=== PATIENT | male | born 1950 | race Caucasian/White ===

== ENCOUNTER 2017-05-14 16:00 | Inpatient (IN) ==
[2017-05-15 20:45] LABS: Appearance,Urine CLEAR; Bilirubin,Urine NEG (NEG); Color,Urine YELLOW; Glucose,Urine (UA) NEGATIVE (NEG); Leukocyte Esterase,Urine NEG /uL (NEG); Nitrate,Urine NEG (NEG); Protein,Urine NEG (NEG); Urine Blood NEG mg/dL (<0.03); Urobilinogen,Urine NEG (NEG)
[2017-05-15 21:11] LABS: Basophils # (Auto) 0 K/mcL (0.0-0.3); Basophils % (Auto) 0.3 % (0.0-2.0); Eosinophils # (Auto) 0.1 K/mcL (0.0-0.7); Eosinophils % (Auto) 0.8 % (0.0-7.0); Granulocytes % (Auto) 64.3 % (38.0-78.0); Lymphocytes # (Auto) 2.1 K/mcL (1.5-4.8); Lymphocytes % (Auto) 25.5 % (15.5-49.0); Mean Cell Volume 97.8 fL (80.0-100.0); Mean Corpuscular HGB Conc 34.6 g/dL (31.0-36.0); Mean Corpuscular Hemoglobin 33.8 pg (26.0-34.0); Monocytes # (Auto) 0.8 K/mcL (0.1-0.9); Monocytes % (Auto) 9.1 % (1.0-12.0); Platelet Count 230 K/mcL (140-440); RBC 4.05 M/mcL (4.50-5.90); Red Cell Distribution Width 12.8 % (11.5-14.5)
[2017-05-15 21:19] LABS: Blood Urea Nitrogen 23 mg/dl (8-23)
[2017-05-18] MEDS ORDERED: ACETAMINOPHEN 500 MG TABLET PO SCH ×2 (06:00→07:00)
[2017-05-18] MEDS ORDERED: ceFAZolin 1 GM VIAL IV SCH ×2 (06:00)
[2017-05-18] MEDS ORDERED: CELECOXIB 200 MG CAPSULE PO SCH ×2 (06:00)
[2017-05-18] MEDS ORDERED: GABAPENTIN 100 MG CAPSULE PO SCH ×2 (06:00)
[2017-05-18] MEDS ORDERED: oxyCODONE 10 MG TAB.ER.12H PO SCH ×2 (06:00→07:00)
[2017-05-18] MEDS ORDERED: GENTAMICIN SULFATE 800 MG/20 ML VIAL IR ONE (09:10)
[2017-05-18] MEDS ORDERED: PROPOFOL 200 MG/20 ML VIAL IV ONE (09:15)
[2017-05-18] MEDS ORDERED: ONDANSETRON 4 MG/2 ML VIAL IV ONE (09:15)
[2017-05-18] MEDS ORDERED: LIDOCAINE HCL/PF 100 MG/5 ML SYRINGE IV ONE (09:15)
[2017-05-18] MEDS ORDERED: GLYCOPYRROLATE 0.2 MG/ML VIAL IV ONE (09:15)
[2017-05-18] MEDS ORDERED: TRANEXAMIC ACID 1,000 MG/10 ML VIAL IV ONE ×2 (09:15→10:58)
[2017-05-18] MEDS ORDERED: MIDAZOLAM 5 MG/5 ML VIAL IV ONE (09:15)
[2017-05-18] MEDS ORDERED: DEXAMETHASONE 10 MG/ML VIAL IV ONE (09:15)
[2017-05-18] MEDS ORDERED: PHENYLEPHRINE 10 MG/ML VIAL IV ONE (09:15)
[2017-05-18] MEDS ORDERED: KETAMINE 100 MG/ML ML IV ONE (09:15)
[2017-05-18] MEDS ORDERED: ePHEDrine 50 MG/ML AMPUL IV PRN (10:36)
[2017-05-18] MEDS ORDERED: MEPERIDINE 25 MG/ML SYRINGE IV PRN (10:36)
[2017-05-18] MEDS ORDERED: PROMETHAZINE 25 MG/ML VIAL IV PRN (10:36)
[2017-05-18] MEDS ORDERED: IPRATROPIUM/ALBUTEROL 3 ML AMPUL.NEB NEB PRN (10:36)
[2017-05-18] MEDS ORDERED: BENZOCAINE/MENTHOL 1 LOZENGE PO PRN ×2 (10:36→10:58)
[2017-05-18] MEDS ORDERED: ONDANSETRON 4 MG/2 ML VIAL IV PRN ×2 (10:36→10:58)
[2017-05-18] MEDS ORDERED: METHOCARBAMOL 1,000 MG/10 ML VIAL IV PRN (10:36)
[2017-05-18] MEDS ORDERED: LACTATED RINGERS 1,000 ML IV SCH (10:45)
--- NOTE | 2017-05-18 10:57 | Brief Operative Note ---
Date of procedure: 05/18/17 Pre-op diagnosis: right hip djd severe and right elbow ulner nerve release Post-op diagnosis: same Procedure: right ashanti and right elbow ulner nerve release Grafts/Implants: Yes Anesthesia: GETA Complications: none Complications Description: 05/18/17 10:57 none Surgeon: Karson Hernandez [employer] Technician: Nirav Mackenzie Estimated blood loss (cc): 100 Tourniquet Time (Minutes): 0 Specimens Removed/Pathology: none sent Condition: stable Disposition: PACU
[2017-05-18] MEDS ORDERED: TEMAZEPAM 15 MG CAPSULE PO PRN (10:58)
[2017-05-18] MEDS ORDERED: BISACODYL 10 MG SUPP.RECT PR PRN (10:58)
[2017-05-18] MEDS ORDERED: ACETAMINOPHEN 325 MG TABLET PO PRN (10:58)
[2017-05-18] MEDS ORDERED: POLYETHYLENE GLYCOL 3350 17 GM PACKET PO PRN (10:58)
[2017-05-18] MEDS ORDERED: MAGNESIUM HYDROXIDE 30 ML ORAL.SUSP PO PRN (10:58)
[2017-05-18] MEDS ORDERED: FLEETS ADULT ENEMA PR PRN (10:58)
[2017-05-18] MEDS ORDERED: DESOXIMETASONE TP PRN (11:02)
--- NOTE | 2017-05-18 11:27 | Operative Note ---
DATE OF OPERATION: 05/18/2017 PREOPERATIVE DIAGNOSES: 1. Right hip degenerative arthritis, severe. 2. Right elbow ulnar nerve entrapment. POSTOPERATIVE DIAGNOSES: 1. Right hip degenerative arthritis, severe. 2. Right elbow ulnar nerve entrapment. PROCEDURES: 1. Right total hip arthroplasty. 2. Right ulnar nerve release. SURGEON: Karson Hernandez MD C D REACTOR OPERATOR: Nirav Mackenzie PA-C ANESTHESIA: General LMA anesthesia. COMPLICATIONS: None. IMPLANTS: A size 6 cementless stem, a 58 cementless cup with a dual mobility liner and a +8 neck length. BLOOD LOSS: 100 mL or less. DESCRIPTION OF PROCEDURE: The patient was brought to the operating room and put to sleep with general LMA anesthesia. Once asleep, the patient had the right hip sterilely prepped and draped in the usual sterile fashion. Once this was confirmed as the operative site the tranexamic acid and antibiotics had been given. Once all this had been done, we then sterilely prepped the right hip and made a superior posterior approach and performed a total hip arthroplasty. We went through the fascial layer and placed a Charnley retractor. Once this was done, I then identified the superior posterior capsule. We released the piriformis obturator internus which was tagged and we released the capsule and then dislocated the hip. We made our neck cut at 34 mm in length and then subluxed the hip anteriorly, removed the labrum and reamed up to the size 57 and implanted a 58 cup. Once this was done, we then placed the dual mobility liner. The inclination was 40 degrees, anteversion 20 degrees, no complications with this portion. We irrigated thoroughly. We then prepared the canal. We broached up to the size 6, trialed a size 6 with a neutral length and took an x-ray. This was slightly short as well as not as stable as we would like. We then implanted the final implant, a size 6. This did countersink slightly from the original. We did go up to a +8 neck length. Once this was done, we then reduced the hip. This was very stable up to 90 degrees of internal rotation, full range of motion and equal leg lengths. Intraoperative x-rays were excellent. We then proceeded with washing the hip and closed the superior posterior capsule. Once this was done, I then closed the fascial layer with #1 6, closed the skin with 2-0 Vicryl and adhesive closure. The patient tolerated this well without complication. The second case was then performed. I sterilely prepped the right elbow, placed a new drape over the arm. We then released the ulnar nerve without a tourniquet, identifying the nerve initially through the skin and then followed this proximally and distally. Once this was adequately decompressed, which was very tight in the ulnar canal, we then irrigated and placed two stitches to close the skin. Once done, I then irrigated thoroughly and the skin was closed with 5-0 nylon. The patient tolerated this well with a posterior splint. There was no complication. [facility]:letty Job ID: [id number] Doc ID: [id number] Karson Hernandez MD
[2017-05-18] MEDS: fentaNYL 100 MCG/2 ML VIAL IV PRN ×2 (11:31→11:40)
--- NOTE | 2017-05-18 11:41 | XRay Report ---
CLINICAL INFORMATION: :Post-op Total Hip COMPARISON: None. FINDINGS: Right total hip prostheses noted. There appears to be mild excess of anteversion and lateral canting of the acetabular component. Femoral component is anatomically aligned. No osseous abnormality. Both SI and left hip joints are normal. The soft tissues are unremarkable. IMPRESSION: Right total hip prostheses - as described Interpreted and Authenticated by: Semaj Tejada 05/18/17
[2017-05-18] MEDS: KETOROLAC 15 MG/ML VIAL IV PRN ×2 (11:45→17:46)
[2017-05-18] MEDS: 0.9 % SODIUM CHLORIDE 10 ML SYRINGE IV SCH ×2 (13:05→22:10)
[2017-05-18] MEDS: 0.45 % SODIUM CHLORIDE 1,000 ML IV SCH ×2 (13:15→22:18)
[2017-05-18] MEDS: oxyCODONE HCL 5 MG TABLET PO PRN (14:42)
[2017-05-18] MEDS: GABAPENTIN 100 MG CAPSULE PO SCH ×2 (14:44→20:21)
[2017-05-18] MEDS: ceFAZolin 1 GM VIAL IV SCH (16:45)
[2017-05-18] MEDS: HYDROmorphone 2 MG/ML SYRINGE IV PRN ×2 (17:52→22:05)
[2017-05-18] MEDS: oxyCODONE 10 MG TAB.ER.12H PO SCH (19:47)
[2017-05-18] MEDS: ASPIRIN 325 MG ENTERIC COATED TABLET PO SCH (20:20)
[2017-05-18] MEDS: MELOXICAM 7.5 MG TABLET PO SCH (20:21)
[2017-05-18] MEDS: DOCUSATE SODIUM 100 MG CAPSULE PO SCH (20:21)
[2017-05-18] MEDS ORDERED: SENNOSIDES 1 TABLET PO SCH (21:00)
[2017-05-19] MEDS: ceFAZolin 1 GM VIAL IV SCH (01:30)
[2017-05-19] MEDS: MELOXICAM 7.5 MG TABLET PO SCH ×2 (02:19→08:07)
[2017-05-19] MEDS: KETOROLAC 15 MG/ML VIAL IV PRN (03:15)
[2017-05-19] MEDS: oxyCODONE HCL 5 MG TABLET PO PRN ×3 (03:16→13:00)
[2017-05-19] MEDS: 0.9 % SODIUM CHLORIDE 10 ML SYRINGE IV SCH ×2 (05:59→14:39)
[2017-05-19] MEDS: 0.45 % SODIUM CHLORIDE 1,000 ML IV SCH (06:34)
--- NOTE | 2017-05-19 07:31 | Orthopedic Progress Note ---
Subjective Patient information: Note initiated : 05/19/17 at 7:30 am Service Date, if different from initiated Date: [] Patient: Yong Correia 66 y/o M admitted on 05/18/17 for Right Total Hip Arthroplasty, Right Elbow Ulnar . Chief Complaint: [Pt is stable this morning on post operative day 1 without any significant concerns or complaints. Patients vital signs have remained stable. Patients dressing is dry and exhibits a grossly intact neurovascular and neuromotor exam. Patients 10 point ROS is otherwise negative. ] Objective Vital signs: Vital Signs Temp Pulse Resp BP BP Pulse Ox 05/19/17 03:20 97.5 F 92 H 18 111/68 96 05/19/17 03:00 96 05/19/17 00:00 98.4 F 110 H 18 107/56 93 05/18/17 23:00 93 05/18/17 21:00 93 05/18/17 20:12 98.1 F 118 H 16 118/73 93 05/18/17 16:40 98.8 F 115 H 16 107/75 91 05/18/17 14:52 105 H 110/72 94 05/18/17 13:55 99 H 114/73 95 05/18/17 13:25 91 H 108/66 05/18/17 13:17 94 05/18/17 12:55 73 113/72 98 05/18/17 12:40 85 103/68 98 05/18/17 12:25 86 92/61 95 05/18/17 12:10 97.9 F 81 24 H 101/65 97 05/18/17 11:50 82 14 120/62 98 05/18/17 11:44 14 104/56 100 05/18/17 11:39 75 17 128/65 97 05/18/17 11:25 71 13 108/47 98 05/18/17 11:20 70 14 111/72 100 05/18/17 11:15 79 13 112/69 100 05/18/17 11:10 81 15 130/70 100 05/18/17 11:00 97.4 F 71 15 106/54 98 Intake and Output 05/18/17 05/19/17 05/19/17 21:59 05:59 13:59 Intake Total 600 / 600 1505 / 1505 Output Total 425 / 425 1775 / 1775 400 / 400 Balance 175 / 175 -270 / -270 -400 / -400 Intake: IV 905 / 905 Sodium Chloride 0.45% 1,000 ml 905 / 905 @ 100 mls/hr IV .Q10H DHAVAL Rx#: [id number] Oral 600 / 600 600 / 600 Output: Void Amount 425 / 425 1775 / 1775 400 / 400 Other: Meal Lunch Percent of Meal Consumed 100% Weight 266 lb Intake & Output: Intake & Output 05/18/17 05/19/17 05/19/17 21:59 05:59 13:59 Intake Total 600 / 600 1505 / 1505 Output Total 425 / 425 1775 / 1775 400 / 400 Balance 175 / 175 -270 / -270 -400 / -400 Weight 266 lb Intake: IV 905 / 905 Sodium Chloride 0.45% 1,000 ml 905 / 905 @ 100 mls/hr IV .Q10H DHAVAL Rx#: [id number] Oral 600 / 600 600 / 600 Output: Void Amount 425 / 425 1775 / 1775 400 / 400 Other: Meal Lunch Percent of Meal Consumed 100% Incision: Yes healing Incision clean and dry: Yes Dressing: Yes clean, Yes dry Weight bearing status: partial Neurological exam IM: Yes motor sensory intact, Yes neurovascular intact Extremities exam IM: Yes Foot pink and warm, Yes neurovascular intact - Labs CBC & BMP: 05/15/17 17:11 05/15/17 17:11 Labs: Orthopedic Labs 05/15/17 17:11 PT 13.1 INR 1.0 APTT 30 05/15/17 17:11 Hgb 13.7 Hct 39.6 L Assessment and Plan (1) Hx of total hip arthroplasty The patient has been educated regarding dressing care, Physical Therapy recommendations, home exercises, restrictions, and follow up appointments. The patient has had all necessary DME prescribed. The patient has remained stable during their hospital course. The patient was discharge with a stable exam. Leave Dermabond patch intact until followup Status: Acute (2) Hx of total hip arthroplasty Status: Acute
--- NOTE | 2017-05-19 07:34 | Discharge Summary ---
Ortho Discharge - [facility] - Patient Instructions Diet: Regular Diet Activity: activity as tolerated, weight bearing as tolerated Total Hip Protocol: Follow activity instructions as provided by Physical Therapy. Dressing Care: May shower in 2 days Patient Education: Aspirin/Codeine (By mouth), Oxycodone, Rapid Release (By mouth), Total Hip Replacement (DC) Additional Instructions: Discharge Instructions: Do the exercises at home that physical therapy gave you. You are scheduled to start physical therapy at [facility] ([phone]) on May.23 at 1:45 pm, please arrive 15 minutes early for paperwork. Take your prescription, photo ID, insurance cards, and current medication list with you to your first physical therapy appointment. Take your prescription to pick and shovel man any medication or equipment (such as walker, crutches, toilet riser or C.P.M.) Wear comfortable clothing for your physical therapy (wear/bring shorts. Weight bearing as tolerated. You have Dermabond dressing (a dressing with a mesh-like appearance) on your hip , leave open to air. Do not remove this dressing from your hip You may start showering on post op day #2. No soaking in tub/pool. Keep your right arm dressing clean, dry and in place until seen in the physician 's office. No weight bearing with right hand. To avoid constipation while taking any narcotic pain medication, take an over the counter stool softener/laxative. Use packs as directed, on for 20 minutes at a time throughout the day. This and elevation will help with pain and swelling. Call your physician for fevers above 100.5 or pain not controlled by medication. Your prescriptions are with your discharge information. Some medications were electronically transmitted to your pharmacy of choice. - Problem Maintenance (1) Hx of total hip arthroplasty Status: Acute (2) Hx of total hip arthroplasty Status: Acute - Follow Up Plan Follow Up Appointments: Karson Hernandez MD [Physician] - 05/31/17 9:30 am Disposition: Home, Self-Care Prognosis: Good Rehab Potential: Good I certify that the patient requires SNF services: No Overall status at discharge: patient is progressing back to baseline - Orders For Discharge Prescriptions: Aspirin [Ecotrin] 325 mg PO BID #28 tab.ec oxyCODONE HCL [Roxicodone] 5 - 10 mg PO Q4HP PRN #60 tab PRN Reason: Pain Additional Discharge Orders: Physical Therapy at Discharge - [facility] Location: Determined By Patient Toilet Riser Discharge Order Location: Determined By Patient Toilet Riser Discharge Order Location: Determined By Patient Walker Location: Determined By Patient
[2017-05-19] MEDS: oxyCODONE 10 MG TAB.ER.12H PO SCH (08:06)
[2017-05-19] MEDS: ASPIRIN 325 MG ENTERIC COATED TABLET PO SCH (08:07)
[2017-05-19] MEDS: DOCUSATE SODIUM 100 MG CAPSULE PO SCH (08:07)
[2017-05-19] MEDS: GABAPENTIN 100 MG CAPSULE PO SCH (08:08)
[2017-05-19] MEDS ORDERED: MULTIVIT,THER IRON,CA,FA & MIN 1 TABLET PO SCH (09:00)
[2017-05-19] MEDS ORDERED: LOSARTAN/HCTZ 100/25 TABLET PO SCH (09:00)
[2017-05-19] MEDS ORDERED: HYDROCHLOROTHIAZIDE 25 MG TABLET PO SCH (09:00)
[2017-05-19] MEDS ORDERED: LOSARTAN 50 MG TABLET PO SCH (09:00)
[2017-05-23] MEDS ORDERED: TESTOSTERONE CYPIONATE 200 MG SC SCH (09:00)
== END 2017-05-19 15:45 | disposition home or self-care (01) | DRG 470 ==
LOC: MEDSUR 05-18 06:29
PROVIDERS: ADMIT Orthopaedic Surgery; ATTEND Orthopaedic Surgery

== ENCOUNTER 2024-09-10 11:21 | Inpatient (IN) ==
[2024-09-10] MEDS ORDERED: LIDOCAINE 1% 10 ML VIAL SQ ONE (11:22)
[2024-09-10] MEDS: morphine 10 MG/ML VIAL IV ONE (11:54)
[2024-09-10] MEDS: fentaNYL 100 MCG/2 ML VIAL IV ONE ×3 (12:54→19:06)
[2024-09-10 14:38] LABS: Erythrocyte Sedimentation Rate 40 mm/hr (0-20)
[2024-09-10 14:42] LABS: Basophils # (Auto) 0 K/mcL (0.00-0.30); Basophils % (Auto) 0 % (0.0-2.0); Eosinophils # (Auto) 0 K/mcL (0.00-0.70); Eosinophils % (Auto) 0 % (0.0-7.0); Hematocrit 43.8 % (40.1-51.0); Hemoglobin 14.9 g/dL (13.7-17.5); Lymphocytes # (Auto) 0.48 K/mcL (1.50-4.80); Lymphocytes % (Auto) 8.1 % (15.5-49.0); Mean Cell Volume 96.5 fL (80.0-100.0); Mean Platelet Volume 10.8 fL (8.8-12.5); Monocytes # (Auto) 1.13 K/mcL (0.10-0.90); Monocytes % (Auto) 19.1 % (1.0-12.0); Neutrophils % (Auto) 72.6 % (38.0-78.0); Platelet Count 98 K/mcL (140-440); RBC 4.54 M/mcL (4.63-6.08); Red Cell Distribution Width 12.2 % (11.5-14.5); WBC 5.9 K/mcL (4.5-11.0)
[2024-09-10 14:43] LABS: Prothrombin Time 14.3 sec (11.9-14.5)
[2024-09-10 14:46] LABS: ALT/SGPT 27 U/L (<40); AST/SGOT 46 U/L (<40); Albumin 3.9 gm/dL (3.2-5.2); Albumin/Globulin Ratio 1.3 (1.0-2.3); Alkaline Phosphatase 54 U/L (39-117); Bilirubin,Total 0.7 mg/dL (0.1-1.0); Blood Urea Nitrogen 35 mg/dL (8-23); Calcium 9.3 mg/dL (8.6-10.4); Carbon Dioxide 24 mmol/L (22-30); Chloride 95 mmol/L (96-108); Globulin 3.1 gm/dL (2.2-3.7); Glomerular Filtration Rate 42; Glucose 95 mg/dL (70-105); Potassium 3.9 mmol/L (3.3-5.1); Sodium 133 mmol/L (133-145)
[2024-09-10] MEDS: 0.9 % SODIUM CHLORIDE 1,000 ML IV ONE (16:05)
[2024-09-10] MEDS: PIPERACILLIN SODIUM/TAZOBACTAM 3.375 GM in DEXTROSE 5% IN WATER 50 ML IV ONE (16:10)
[2024-09-10] MEDS: VANCOMYCIN 1,500 MG in 0.9 % SODIUM CHLORIDE 500 ML IV ONE (16:41)
[2024-09-10 17:49] LABS: Crystals,Body Fluid Ca Pyrophosphate (None Seen)
[2024-09-10 18:12] LABS: Glucose,Synovial Fluid 6 mg/dL
[2024-09-10 18:21] LABS: Appearance,Synovial Fluid Cloudy; Color,Synovial Fluid Red; Lymphocytes,Synovial Fluid 2 %; Neutrophils,Synovial Fluid 98 % (0-25); Nucleated Cells,Synovial Fld 147315 /cumm
[2024-09-10 18:44] LABS: LDH,Synovial Fluid 5015 U/L
[2024-09-10] MEDS ORDERED: 0.9 % SODIUM CHLORIDE 10 ML SYRINGE IV PRN (18:54)
[2024-09-10] MEDS: ACETAMINOPHEN 1,000 MG/100 ML BAG IV ONE (19:12)
[2024-09-10] MEDS: ACETAMINOPHEN 500 MG TABLET PO ONE (19:15)
[2024-09-10] MEDS: VANCOMYCIN 2,000 MG in 0.9 % SODIUM CHLORIDE 500 ML IV SCH (19:48)
[2024-09-10] MEDS: HYDROmorphone 1 MG/ML SYRINGE IV PRN (20:54)
[2024-09-10] MEDS: 0.9 % SODIUM CHLORIDE 10 ML SYRINGE IV SCH (20:58)
[2024-09-10] MEDS: ceFAZolin 3 GM in DEXTROSE 5% IN WATER 50 ML IV SCH (21:22)
[2024-09-10] MEDS: VANCOMYCIN 500 MG in 0.9 % SODIUM CHLORIDE 100 ML IV ONE (22:42)
[2024-09-10] MEDS: VANCOMYCIN PER PHARMACY IV ONE (22:46)
[2024-09-11] MEDS ORDERED: VANCOMYCIN PER PHARMACY IV SCH (06:45)
[2024-09-11] MEDS: VANCOMYCIN 1,500 MG in 0.9 % SODIUM CHLORIDE 500 ML IV SCH (10:18)
[2024-09-11] MEDS ORDERED: NALOXONE HCL 0.4 MG/ML VIAL IV PRN ×2 (14:07→15:16)
[2024-09-11] MEDS: HYDROmorphone 1 MG/ML SYRINGE IV ONE (14:19)
[2024-09-11] MEDS: LORazepam 2 MG/ML VIAL ONE (14:20)
[2024-09-11] MEDS: LACTATED RINGERS 1,000 ML IV ONE ×2 (14:21→15:13)
[2024-09-11] MEDS: LEVOFLOXACIN 750 MG/150 ML BAG IV ONE ×2 (14:24→15:46)
[2024-09-11 14:43] LABS: Basophils # (Auto) 0.01 K/mcL (0.00-0.30); Basophils % (Auto) 0.2 % (0.0-2.0); Eosinophils # (Auto) 0 K/mcL (0.00-0.70); Eosinophils % (Auto) 0 % (0.0-7.0); Hematocrit 44.7 % (40.1-51.0); Hemoglobin 15.1 g/dL (13.7-17.5); Lymphocytes # (Auto) 0.83 K/mcL (1.50-4.80); Lymphocytes % (Auto) 13.3 % (15.5-49.0); Mean Cell Volume 97.4 fL (80.0-100.0); Mean Corpuscular HGB Conc 33.8 g/dL (31.0-36.0); Mean Platelet Volume 10.2 fL (8.8-12.5); Monocytes # (Auto) 0.79 K/mcL (0.10-0.90); Monocytes % (Auto) 12.7 % (1.0-12.0); Neutrophils % (Auto) 73.6 % (38.0-78.0); Platelet Count 99 K/mcL (140-440); RBC 4.59 M/mcL (4.63-6.08); Red Cell Distribution Width 12.4 % (11.5-14.5); WBC 6.2 K/mcL (4.5-11.0)
[2024-09-11 14:55] LABS: ALT/SGPT 29 U/L (<40); AST/SGOT 43 U/L (<40); Albumin 3.9 gm/dL (3.2-5.2); Albumin/Globulin Ratio 1.1 (1.0-2.3); Alkaline Phosphatase 60 U/L (39-117); Bilirubin,Direct 0.3 mg/dL (<0.3); Bilirubin,Total 0.6 mg/dL (0.1-1.0); Blood Urea Nitrogen 29 mg/dL (8-23); Calcium 9.2 mg/dL (8.6-10.4); Carbon Dioxide 24 mmol/L (22-30); Chloride 95 mmol/L (96-108); Globulin 3.6 gm/dL (2.2-3.7); Glomerular Filtration Rate 42; Glucose 91 mg/dL (70-105); Lactate Dehydrogenase 241 U/L (135-225); Phosphorous 3.6 mg/dL (2.5-4.5); Potassium 3.7 mmol/L (3.3-5.1); Sodium 135 mmol/L (133-145); Triglycerides 124 mg/dL (<150); Uric Acid 8.5 mg/dL (2.5-8.0)
[2024-09-11 15:00] LABS: Prothrombin Time 13.8 sec (11.9-14.5)
[2024-09-11] MEDS ORDERED: KETAMINE 50 MG/ML Syringe IV ONE (15:05)
[2024-09-11] MEDS ORDERED: PROPOFOL 200 MG/20 ML VIAL IV ONE (15:05)
[2024-09-11] MEDS ORDERED: fentaNYL 100 MCG/2 ML VIAL ONE (15:05)
[2024-09-11] MEDS ORDERED: DEXAMETHASONE 10 MG/ML VIAL ONE (15:06)
[2024-09-11] MEDS ORDERED: LIDOCAINE 2% PF 5 ML VIAL ONE (15:10)
[2024-09-11] MEDS ORDERED: ONDANSETRON 4 MG/2 ML VIAL IV PRN ×2 (15:16→18:59)
[2024-09-11] MEDS ORDERED: LACTATED RINGERS 250 ML IV PRN (15:16)
[2024-09-11] MEDS ORDERED: HYDROmorphone 0.5 MG/0.5 ML SYRINGE IV PRN ×2 (15:16→18:14)
[2024-09-11] MEDS ORDERED: fentaNYL 100 MCG/2 ML VIAL IV PRN ×2 (15:16→18:14)
[2024-09-11] MEDS ORDERED: IPRATROPIUM/ALBUTEROL 3 ML AMPUL.NEB NEB PRN ×2 (15:16→18:14)
[2024-09-11] MEDS ORDERED: BENZOCAINE/MENTHOL 1 LOZENGE PO PRN ×2 (15:16→18:59)
[2024-09-11] MEDS ORDERED: GLYCOPYRROLATE 0.2 MG/ML VIAL IV ONE (16:09)
[2024-09-11] MEDS ORDERED: ONDANSETRON 4 MG/2 ML VIAL ONE (16:09)
[2024-09-11] MEDS: cefTRIAXone 2 GM in DEXTROSE 5% IN WATER 50 ML IV ONE (16:21)
[2024-09-11] MEDS ORDERED: FAMOTIDINE/PF 20 MG/2 ML VIAL IV ONE (17:53)
[2024-09-11] MEDS ORDERED: METOPROLOL TARTRATE 5 MG/5 ML VIAL IV ONE (17:53)
[2024-09-11] MEDS ORDERED: METOCLOPRAMIDE 10 MG/2 ML VIAL ONE (17:53)
[2024-09-11] MEDS ORDERED: HYDROmorphone 0.5 MG/0.5 ML SYRINGE ONE ×2 (18:00→18:04)
[2024-09-11] MEDS ORDERED: DROPERIDOL 5 MG/2 ML VIAL IV PRN (18:14)
[2024-09-11] MEDS ORDERED: KETOROLAC 15 MG/ML VIAL IV PRN (18:59)
[2024-09-11] MEDS ORDERED: TEMAZEPAM 15 MG CAPSULE PO PRN (18:59)
[2024-09-11] MEDS ORDERED: HYDROcodone/APAP 10/325MG TABLET PO PRN (18:59)
[2024-09-11] MEDS ORDERED: HYDROmorphone 1 MG/ML SYRINGE IV PRN (18:59)
[2024-09-11] MEDS ORDERED: DESOXIMETASONE TP PRN (19:02)
[2024-09-11 19:09] LABS: Uric Acid,Synovial Fluid 6.3 mg/dL (<6.0)
[2024-09-11] MEDS: METHOCARBAMOL 1,000 MG/10 ML VIAL IV PRN (19:16)
[2024-09-11] MEDS: TRANEXAMIC ACID 1,000 MG/10 ML VIAL IV ONE (19:19)
[2024-09-11] MEDS: LACTATED RINGERS 1,000 ML IV SCH ×4 (20:09→21:22)
[2024-09-11] MEDS ORDERED: DOXYCYCLINE HYCLATE 100 MG PO SCH (21:00)
[2024-09-11] MEDS: 0.9 % SODIUM CHLORIDE 1,000 ML IV SCH (21:23)
[2024-09-11] MEDS: MELOXICAM 7.5 MG TABLET PO SCH (21:33)
[2024-09-11] MEDS: DOCUSATE SODIUM 100 MG CAPSULE PO SCH (21:33)
[2024-09-11] MEDS: ASPIRIN 81 MG TAB.CHEW CHEWED SCH (21:33)
[2024-09-11] MEDS: 0.9 % SODIUM CHLORIDE 10 ML SYRINGE IV SCH (21:34)
[2024-09-11] MEDS: DIAZEPAM 10 MG TABLET PO PRN (22:17)
[2024-09-11] MEDS ORDERED: ceFAZolin 1 GM VIAL IV SCH (23:00)
[2024-09-12] MEDS: TRANEXAMIC ACID 1,000 MG/10 ML VIAL ONE (07:08)
[2024-09-12 07:21] LABS: Basophils # (Auto) 0 K/mcL (0.00-0.30); Basophils % (Auto) 0 % (0.0-2.0); Blood Urea Nitrogen 36 mg/dL (8-23); Carbon Dioxide 19 mmol/L (22-30); Chloride 99 mmol/L (96-108); Eosinophils # (Auto) 0 K/mcL (0.00-0.70); Eosinophils % (Auto) 0 % (0.0-7.0); Glomerular Filtration Rate 42; Glucose 154 mg/dL (70-105); Hematocrit 43.5 % (40.1-51.0); Hemoglobin 14.4 g/dL (13.7-17.5); Lymphocytes # (Auto) 0.47 K/mcL (1.50-4.80); Mean Cell Volume 98.9 fL (80.0-100.0); Mean Corpuscular HGB Conc 33.1 g/dL (31.0-36.0); Mean Platelet Volume 10.8 fL (8.8-12.5); Monocytes % (Auto) 7.5 % (1.0-12.0); Neutrophils % (Auto) 85.4 % (38.0-78.0); Platelet Count 98 K/mcL (140-440); Potassium 4.6 mmol/L (3.3-5.1); Red Cell Distribution Width 12.4 % (11.5-14.5); Sodium 135 mmol/L (133-145); WBC 6.7 K/mcL (4.5-11.0)
[2024-09-12] MEDS: LACTATED RINGERS 1,000 ML IV SCH (08:58)
[2024-09-12] MEDS ORDERED: LOSARTAN/HCTZ 50/12.5 TABLET PO SCH (09:00)
[2024-09-12] MEDS: cefTRIAXone 2 GM in DEXTROSE 5% IN WATER 50 ML IV SCH (09:00)
[2024-09-12] MEDS ORDERED: cefTRIAXone 1 GM VIAL IV SCH (09:00)
[2024-09-12] MEDS ORDERED: LOSARTAN 50 MG TABLET PO SCH (09:00)
[2024-09-12] MEDS ORDERED: HYDROCHLOROTHIAZIDE 12.5 MG CAPSULE PO SCH (09:00)
[2024-09-12] MEDS: LACTOBACILLUS 1 CAPSULE PO SCH (09:17)
[2024-09-12] MEDS: LEVOFLOXACIN 750 MG/150 ML BAG IV SCH (09:47)
[2024-09-12] MEDS: ACETAMINOPHEN 325 MG TABLET PO PRN (19:30)
[2024-09-13 06:25] LABS: Basophils # (Auto) 0 K/mcL (0.00-0.30); Basophils % (Auto) 0 % (0.0-2.0); Eosinophils # (Auto) 0 K/mcL (0.00-0.70); Eosinophils % (Auto) 0 % (0.0-7.0); Hematocrit 35.8 % (40.1-51.0); Hemoglobin 12.2 g/dL (13.7-17.5); Lymphocytes % (Auto) 9.1 % (15.5-49.0); Mean Cell Volume 96.8 fL (80.0-100.0); Mean Corpuscular HGB Conc 34.1 g/dL (31.0-36.0); Mean Platelet Volume 10.2 fL (8.8-12.5); Monocytes % (Auto) 10.4 % (1.0-12.0); Neutrophils % (Auto) 80.2 % (38.0-78.0); Platelet Count 134 K/mcL (140-440); Red Cell Distribution Width 12.6 % (11.5-14.5); WBC 7.7 K/mcL (4.5-11.0)
[2024-09-13 07:04] LABS: ALT/SGPT 27 U/L (<40); AST/SGOT 35 U/L (<40); Albumin 3.1 gm/dL (3.2-5.2); Albumin/Globulin Ratio 1.1 (1.0-2.3); Alkaline Phosphatase 42 U/L (39-117); Bilirubin,Direct 0.2 mg/dL (<0.3); Bilirubin,Total 0.4 mg/dL (0.1-1.0); Blood Urea Nitrogen 40 mg/dL (8-23); Calcium 8.7 mg/dL (8.6-10.4); Carbon Dioxide 24 mmol/L (22-30); Chloride 102 mmol/L (96-108); Globulin 2.8 gm/dL (2.2-3.7); Glomerular Filtration Rate 42; Glucose 126 mg/dL (70-105); Lactate Dehydrogenase 179 U/L (135-225); Phosphorous 2.3 mg/dL (2.5-4.5); Potassium 3.8 mmol/L (3.3-5.1); Sodium 140 mmol/L (133-145); Triglycerides 108 mg/dL (<150); Uric Acid 8.1 mg/dL (2.5-8.0)
[2024-09-13] MEDS: HYDROcodone/APAP 5/325MG TABLET PO PRN (12:15)
[2024-09-14 06:38] LABS: ALT/SGPT 33 U/L (<40); AST/SGOT 39 U/L (<40); Albumin 3.4 gm/dL (3.2-5.2); Albumin/Globulin Ratio 1.2 (1.0-2.3); Alkaline Phosphatase 48 U/L (39-117); Bilirubin,Direct 0.3 mg/dL (<0.3); Bilirubin,Total 0.5 mg/dL (0.1-1.0); Blood Urea Nitrogen 36 mg/dL (8-23); Carbon Dioxide 24 mmol/L (22-30); Chloride 102 mmol/L (96-108); Globulin 2.9 gm/dL (2.2-3.7); Glomerular Filtration Rate 42; Glucose 101 mg/dL (70-105); Lactate Dehydrogenase 205 U/L (135-225); Phosphorous 2.6 mg/dL (2.5-4.5); Potassium 3.6 mmol/L (3.3-5.1); Sodium 140 mmol/L (133-145); Triglycerides 123 mg/dL (<150); Uric Acid 7.6 mg/dL (2.5-8.0)
[2024-09-14] MEDS: diphenhydrAMINE 25 MG CAPSULE PO PRN (21:54)
[2024-09-15 06:16] LABS: ALT/SGPT 32 U/L (<40); AST/SGOT 39 U/L (<40); Albumin 3.3 gm/dL (3.2-5.2); Albumin/Globulin Ratio 1.2 (1.0-2.3); Alkaline Phosphatase 45 U/L (39-117); Bilirubin,Direct 0.3 mg/dL (<0.3); Bilirubin,Total 0.6 mg/dL (0.1-1.0); Blood Urea Nitrogen 34 mg/dL (8-23); Calcium 8.9 mg/dL (8.6-10.4); Carbon Dioxide 26 mmol/L (22-30); Chloride 101 mmol/L (96-108); Globulin 2.8 gm/dL (2.2-3.7); Glomerular Filtration Rate 39; Glucose 104 mg/dL (70-105); Lactate Dehydrogenase 234 U/L (135-225); Phosphorous 3.5 mg/dL (2.5-4.5); Potassium 3.7 mmol/L (3.3-5.1); Sodium 140 mmol/L (133-145); Triglycerides 90 mg/dL (<150); Uric Acid 6.9 mg/dL (2.5-8.0)
[2024-09-15] MEDS ORDERED: LABETALOL HCL 20 MG/4 ML VIAL IV PRN (08:05)
[2024-09-15] MEDS: oxyCODONE IR 5 MG TABLET PO SCH (10:52)
[2024-09-15] MEDS ORDERED: HYDROcodone/APAP 10/325MG TABLET PO PRN (11:42)
[2024-09-15] MEDS: ACETAMINOPHEN 160 MG/5 ML ORAL.SOL PO SCH (13:10)
[2024-09-15] MEDS: HYDROmorphone 1 MG/ML SYRINGE IV PRN (13:16)
[2024-09-15] MEDS: LIDOCAINE 4% TOP PATCH TOPICAL SCH (13:17)
[2024-09-15] MEDS: amLODIPine 5 MG TABLET PO SCH (13:17)
[2024-09-15] MEDS: 0.9 % SODIUM CHLORIDE 1,000 ML IV ONE (14:06)
[2024-09-15] MEDS: oxyCODONE IR 5 MG TABLET PO PRN (16:42)
[2024-09-15 16:54] LABS: Sodium, Urine Random 91 mmol/L
[2024-09-15 16:58] LABS: Creatinine, Spot Urine 91.3 mg/dL (39.0-259.0); Microalbum/Creatinine Ratio,Ur 13.2 mg/gm (0.5-30.0); Microalbumin,Urine < 1.2 mg/dL; Pro:Crea Ratio 0.11 (<0.20)
[2024-09-15] MEDS: SODIUM CHLORIDE IV ONE (19:23)
[2024-09-15] MEDS: MELOXICAM 7.5 MG TABLET PO SCH (20:26)
[2024-09-16] MEDS: amLODIPine 5 MG TABLET PO ONE (09:51)
[2024-09-16 09:52] LABS: Blood Urea Nitrogen 32 mg/dL (8-23); Calcium 9.2 mg/dL (8.6-10.4); Carbon Dioxide 24 mmol/L (22-30); Chloride 100 mmol/L (96-108); Glomerular Filtration Rate 39; Glucose 114 mg/dL (70-105); Potassium 3.5 mmol/L (3.3-5.1); Sodium 139 mmol/L (133-145)
[2024-09-16] MEDS: oxyCODONE IR 5 MG TABLET PO PRN (11:50)
[2024-09-16 14:27] VITALS: TEMP 97.5; O2SAT 95
[2024-09-17] MEDS ORDERED: LEVOFLOXACIN 750 MG TABLET PO SCH (09:00)
[2024-09-17] MEDS ORDERED: LEVOFLOXACIN 750 MG/150 ML BAG IV SCH (09:00)
[2024-09-17] MEDS ORDERED: amLODIPine 5 MG TABLET PO SCH (09:00)
== END 2024-09-16 12:00 | disposition swing bed (61) | DRG 548 ==
LOC: ED 11:21 → MEDSUR 20:16
PROVIDERS: ADMIT Orthopaedic Surgery; ATTEND Internal Medicine

== ENCOUNTER 2024-09-21 09:37 | Inpatient (IN) ==
[2024-09-21] MEDS ORDERED: ONDANSETRON 4 MG/2 ML VIAL IV PRN (09:55)
[2024-09-21] MEDS ORDERED: diphenhydrAMINE 25 MG CAPSULE PO PRN (10:00)
[2024-09-21] MEDS ORDERED: NALOXONE HCL 0.4 MG/ML VIAL IV PRN (10:00)
[2024-09-21] MEDS: LIDOCAINE 4% TOP PATCH TOPICAL SCH (12:57)
[2024-09-21] MEDS: 0.9 % SODIUM CHLORIDE 10 ML SYRINGE IV SCH (13:41)
[2024-09-21] MEDS: ACETAMINOPHEN 1,000 MG/100 ML BAG IV SCH (16:46)
[2024-09-21] MEDS: CYCLOBENZAPRINE 10 MG TABLET PO PRN (16:55)
[2024-09-21] MEDS: HYDROmorphone 1 MG/ML SYRINGE IV PRN (17:37)
[2024-09-21] MEDS: MELATONIN 3 MG TABLET PO SCH (20:46)
[2024-09-21] MEDS: ASPIRIN 81 MG TAB.CHEW CHEWED SCH (20:46)
[2024-09-21] MEDS: DOCUSATE SODIUM 100 MG CAPSULE PO SCH (21:47)
[2024-09-21] MEDS: SENNOSIDES 1 TABLET PO SCH (21:47)
[2024-09-21] MEDS: oxyCODONE IR 5 MG TABLET PO PRN (21:49)
[2024-09-22 05:55] LABS: Albumin 3.7 gm/dL (3.2-5.2); Blood Urea Nitrogen 33 mg/dL (8-23); C-Reactive Protein 8.51 mg/dL (0.03-0.80); Carbon Dioxide 27 mmol/L (22-30); Chloride 97 mmol/L (96-108); Glomerular Filtration Rate 42; Glucose 102 mg/dL (70-105); Phosphorous 4.4 mg/dL (2.5-4.5); Potassium 4.1 mmol/L (3.3-5.1); Sodium 137 mmol/L (133-145)
[2024-09-22] MEDS: amLODIPine 5 MG TABLET PO SCH (08:52)
[2024-09-22] MEDS: LACTOBACILLUS 1 CAPSULE PO SCH (09:00)
[2024-09-22] MEDS: POLYETHYLENE GLYCOL 3350 17 GM PACKET PO SCH (09:15)
[2024-09-22] MEDS ORDERED: 0.9 % SODIUM CHLORIDE 10 ML SYRINGE IV PRN (11:02)
[2024-09-22] MEDS: cefTRIAXone 2 GM in DEXTROSE 5% IN WATER 50 ML IV SCH (11:12)
[2024-09-22] MEDS: HYDROmorphone 1 MG/ML SYRINGE IV PRN (11:52)
[2024-09-22] MEDS: HYDROcodone/APAP 10/325MG TABLET PO SCH ×2 (13:58→20:44)
[2024-09-22 15:15] LABS: Albumin/Globulin Ratio PEP 0.6 RATIO (0.9-1.7); Alpha-1-Globulins 0.56 gm/dL (0.10-0.50); Alpha-2-Globulins 1.29 gm/dL (0.40-1.20); Beta Globulins 1.18 gm/dL (0.60-1.20); Gamma Globulins 1.57 gm/dL (0.50-1.70); Globulin PEP 4.6 gm/dL (2.4-3.6); Total Protein PEP 7.4 gm/dL (5.9-8.4)
[2024-09-22] MEDS: 0.9 % SODIUM CHLORIDE 10 ML SYRINGE IV SCH (20:47)
[2024-09-23] MEDS: amLODIPine 5 MG TABLET PO SCH (08:51)
[2024-09-23] MEDS ORDERED: fentaNYL 50 MCG PATCH TOPICAL SCH (10:00)
[2024-09-23] MEDS: fentaNYL 25 MCG PATCH TOPICAL SCH (11:26)
[2024-09-23] MEDS: fentaNYL 50 MCG PATCH TOPICAL SCH ×2 (13:20→14:23)
[2024-09-23] MEDS: HYDROmorphone 1 MG/ML SYRINGE IV PRN (13:49)
[2024-09-23] MEDS: CYCLOBENZAPRINE 10 MG TABLET PO PRN (14:25)
[2024-09-24 06:27] LABS: Erythrocyte Sedimentation Rate 39 mm/hr (0-20)
[2024-09-24 06:50] LABS: Basophils # (Auto) 0.05 K/mcL (0.00-0.30); Basophils % (Auto) 0.6 % (0.0-2.0); Eosinophils # (Auto) 0.15 K/mcL (0.00-0.70); Eosinophils % (Auto) 1.9 % (0.0-7.0); Hematocrit 37.3 % (40.1-51.0); Hemoglobin 12.5 g/dL (13.7-17.5); Lymphocytes # (Auto) 1.56 K/mcL (1.50-4.80); Lymphocytes % (Auto) 19.9 % (15.5-49.0); Mean Cell Volume 97.1 fL (80.0-100.0); Mean Corpuscular HGB Conc 33.5 g/dL (31.0-36.0); Mean Platelet Volume 9.2 fL (8.8-12.5); Monocytes # (Auto) 0.91 K/mcL (0.10-0.90); Monocytes % (Auto) 11.6 % (1.0-12.0); Neutrophils % (Auto) 65.7 % (38.0-78.0); Platelet Count 386 K/mcL (140-440); RBC 3.84 M/mcL (4.63-6.08); Red Cell Distribution Width 11.8 % (11.5-14.5); WBC 7.9 K/mcL (4.5-11.0)
[2024-09-24 06:58] LABS: ALT/SGPT 50 U/L (<40); AST/SGOT 39 U/L (<40); Albumin 3.5 gm/dL (3.2-5.2); Albumin/Globulin Ratio 0.9 (1.0-2.3); Alkaline Phosphatase 68 U/L (39-117); Bilirubin,Total 0.4 mg/dL (0.1-1.0); Blood Urea Nitrogen 36 mg/dL (8-23); C-Reactive Protein 6.11 mg/dL (0.03-0.80); Calcium 9.9 mg/dL (8.6-10.4); Carbon Dioxide 27 mmol/L (22-30); Chloride 98 mmol/L (96-108); Globulin 3.7 gm/dL (2.2-3.7); Glomerular Filtration Rate 49; Glucose 94 mg/dL (70-105); Potassium 4.5 mmol/L (3.3-5.1); Sodium 136 mmol/L (133-145)
[2024-09-25 07:27] LABS: Basophils # (Auto) 0.06 K/mcL (0.00-0.30); Basophils % (Auto) 0.8 % (0.0-2.0); Eosinophils # (Auto) 0.15 K/mcL (0.00-0.70); Hematocrit 36.9 % (40.1-51.0); Hemoglobin 12.4 g/dL (13.7-17.5); Lymphocytes # (Auto) 1.49 K/mcL (1.50-4.80); Lymphocytes % (Auto) 19.9 % (15.5-49.0); Mean Cell Volume 96.6 fL (80.0-100.0); Mean Corpuscular HGB Conc 33.6 g/dL (31.0-36.0); Mean Platelet Volume 9.2 fL (8.8-12.5); Monocytes # (Auto) 0.85 K/mcL (0.10-0.90); Monocytes % (Auto) 11.4 % (1.0-12.0); Neutrophils % (Auto) 65.8 % (38.0-78.0); Platelet Count 376 K/mcL (140-440); RBC 3.82 M/mcL (4.63-6.08); Red Cell Distribution Width 11.7 % (11.5-14.5); WBC 7.5 K/mcL (4.5-11.0)
[2024-09-25 07:37] LABS: ALT/SGPT 50 U/L (<40); AST/SGOT 37 U/L (<40); Albumin 3.6 gm/dL (3.2-5.2); Alkaline Phosphatase 71 U/L (39-117); Bilirubin,Total 0.5 mg/dL (0.1-1.0); Blood Urea Nitrogen 33 mg/dL (8-23); Calcium 9.7 mg/dL (8.6-10.4); Carbon Dioxide 28 mmol/L (22-30); Chloride 97 mmol/L (96-108); Globulin 3.7 gm/dL (2.2-3.7); Glomerular Filtration Rate 54; Glucose 91 mg/dL (70-105); Potassium 4.1 mmol/L (3.3-5.1); Sodium 136 mmol/L (133-145)
[2024-09-25 13:10] LABS: Albumin 23.9 %; Alpha-1-Globulin 3.7 %; Alpha-2-Globulin 20.8 %; Gamma Globulin 25.8 %; Protein Total Random Urine 8.9 mg/dL (Not Estab.)
[2024-09-26 06:30] LABS: Basophils # (Auto) 0.05 K/mcL (0.00-0.30); Basophils % (Auto) 0.7 % (0.0-2.0); Eosinophils % (Auto) 2.6 % (0.0-7.0); Hematocrit 36.7 % (40.1-51.0); Hemoglobin 12.5 g/dL (13.7-17.5); Lymphocytes # (Auto) 1.63 K/mcL (1.50-4.80); Lymphocytes % (Auto) 21.5 % (15.5-49.0); Mean Cell Volume 95.3 fL (80.0-100.0); Mean Corpuscular HGB Conc 34.1 g/dL (31.0-36.0); Mean Platelet Volume 9.3 fL (8.8-12.5); Monocytes % (Auto) 10.5 % (1.0-12.0); Neutrophils % (Auto) 64.6 % (38.0-78.0); Platelet Count 395 K/mcL (140-440); RBC 3.85 M/mcL (4.63-6.08); Red Cell Distribution Width 11.7 % (11.5-14.5); WBC 7.6 K/mcL (4.5-11.0)
[2024-09-26 07:14] LABS: ALT/SGPT 46 U/L (<40); AST/SGOT 35 U/L (<40); Albumin 3.7 gm/dL (3.2-5.2); Albumin/Globulin Ratio 1.1 (1.0-2.3); Alkaline Phosphatase 74 U/L (39-117); Bilirubin,Total 0.5 mg/dL (0.1-1.0); Blood Urea Nitrogen 33 mg/dL (8-23); C-Reactive Protein 5.56 mg/dL (0.03-0.80); Calcium 9.8 mg/dL (8.6-10.4); Carbon Dioxide 27 mmol/L (22-30); Chloride 98 mmol/L (96-108); Globulin 3.5 gm/dL (2.2-3.7); Glomerular Filtration Rate 54; Glucose 94 mg/dL (70-105); Potassium 3.8 mmol/L (3.3-5.1); Sodium 137 mmol/L (133-145)
[2024-09-26] MEDS ORDERED: DIAZEPAM 10 MG TABLET PO PRN (16:53)
[2024-09-26] MEDS ORDERED: diphenhydrAMINE 25 MG CAPSULE PO PRN (16:53)
[2024-09-26] MEDS ORDERED: DESOXIMETASONE TP PRN (16:53)
[2024-09-26] MEDS: LOSARTAN 50 MG TABLET PO SCH (17:41)
[2024-09-27 07:33] LABS: Basophils # (Auto) 0.05 K/mcL (0.00-0.30); Basophils % (Auto) 0.7 % (0.0-2.0); Eosinophils # (Auto) 0.26 K/mcL (0.00-0.70); Eosinophils % (Auto) 3.8 % (0.0-7.0); Hematocrit 34.3 % (40.1-51.0); Hemoglobin 11.6 g/dL (13.7-17.5); Lymphocytes # (Auto) 1.17 K/mcL (1.50-4.80); Mean Cell Volume 96.6 fL (80.0-100.0); Mean Corpuscular HGB Conc 33.8 g/dL (31.0-36.0); Mean Platelet Volume 9.7 fL (8.8-12.5); Monocytes # (Auto) 0.84 K/mcL (0.10-0.90); Monocytes % (Auto) 12.2 % (1.0-12.0); Neutrophils % (Auto) 66.2 % (38.0-78.0); Platelet Count 348 K/mcL (140-440); RBC 3.55 M/mcL (4.63-6.08); Red Cell Distribution Width 11.9 % (11.5-14.5); WBC 6.9 K/mcL (4.5-11.0)
[2024-09-27 07:41] LABS: C-Reactive Protein 4.64 mg/dL (0.03-0.80)
[2024-09-27 07:42] LABS: ALT/SGPT 42 U/L (<40); AST/SGOT 31 U/L (<40); Albumin 3.5 gm/dL (3.2-5.2); Alkaline Phosphatase 68 U/L (39-117); Bilirubin,Total 0.4 mg/dL (0.1-1.0); Blood Urea Nitrogen 37 mg/dL (8-23); Calcium 9.9 mg/dL (8.6-10.4); Carbon Dioxide 25 mmol/L (22-30); Chloride 99 mmol/L (96-108); Globulin 3.5 gm/dL (2.2-3.7); Glomerular Filtration Rate 54; Glucose 95 mg/dL (70-105); Potassium 4.2 mmol/L (3.3-5.1); Sodium 137 mmol/L (133-145)
[2024-09-27] MEDS ORDERED: LACTOBACILLUS 1 CAPSULE PO SCH (09:00)
[2024-09-27] MEDS: MULTIVIT,THER IRON,CA,FA & MIN 1 TABLET PO SCH (09:07)
[2024-09-28 07:16] LABS: ALT/SGPT 42 U/L (<40); AST/SGOT 32 U/L (<40); Albumin 3.5 gm/dL (3.2-5.2); Albumin/Globulin Ratio 1.1 (1.0-2.3); Alkaline Phosphatase 70 U/L (39-117); Bilirubin,Total 0.5 mg/dL (0.1-1.0); Blood Urea Nitrogen 33 mg/dL (8-23); Calcium 9.3 mg/dL (8.6-10.4); Carbon Dioxide 25 mmol/L (22-30); Chloride 99 mmol/L (96-108); Globulin 3.3 gm/dL (2.2-3.7); Glomerular Filtration Rate 54; Glucose 94 mg/dL (70-105); Potassium 4.2 mmol/L (3.3-5.1); Sodium 136 mmol/L (133-145)
[2024-09-29 06:14] LABS: Basophils # (Auto) 0.05 K/mcL (0.00-0.30); Basophils % (Auto) 0.8 % (0.0-2.0); Eosinophils # (Auto) 0.29 K/mcL (0.00-0.70); Eosinophils % (Auto) 4.4 % (0.0-7.0); Hematocrit 34.8 % (40.1-51.0); Hemoglobin 11.8 g/dL (13.7-17.5); Lymphocytes # (Auto) 1.44 K/mcL (1.50-4.80); Mean Cell Volume 96.1 fL (80.0-100.0); Mean Corpuscular HGB Conc 33.9 g/dL (31.0-36.0); Mean Platelet Volume 9.1 fL (8.8-12.5); Monocytes # (Auto) 0.84 K/mcL (0.10-0.90); Monocytes % (Auto) 12.8 % (1.0-12.0); Neutrophils % (Auto) 59.8 % (38.0-78.0); Platelet Count 293 K/mcL (140-440); RBC 3.62 M/mcL (4.63-6.08); Red Cell Distribution Width 11.9 % (11.5-14.5); WBC 6.5 K/mcL (4.5-11.0)
[2024-09-29 13:08] VITALS: TEMP 98.6; O2SAT 96
== END 2024-09-29 16:15 | disposition home or self-care (01) | DRG 549 ==
LOC: MEDSUR 10:47
PROVIDERS: ADMIT Internal Medicine; ATTEND Internal Medicine